=== PATIENT | female | born 1960 | race African-American/Black ===

== ENCOUNTER 2020-07-09 14:58 | Outpatient (CLI) | payer MEDICARE ==
--- NOTE | 2020-07-17 13:42 | MMO ---
Bilateral MAMMO Bilat Screen [facility]. CLINICAL HISTORY: Patient is 59 years old and is seen for screening. The patient has no family history of breast cancer. The patient has no personal history of cancer. VIEWS: The views performed were: bilateral craniocaudal with tomosynthesis and bilateral mediolateral oblique with tomosynthesis. FILMS COMPARED: The present examination has been compared to prior imaging studies performed at [facility] on 03/15/2007, 04/03/2008, 04/22/2009 and 10/12/2014. This study has been interpreted with the assistance of computer-aided detection. MAMMOGRAM FINDINGS: There are scattered fibroglandular densities. Finding 1: There are stable benign appearing calcifications seen in both breasts. Finding 2: There are new calcifications with grouped or clustered distribution seen in the upper-outer region of the right breast. Finding 3: There are new calcifications with grouped or clustered distribution seen in the outer region of the left breast. IMPRESSION: FINDING 1: STABLE BENIGN APPEARING CALCIFICATIONS IN BOTH BREASTS ARE BENIGN. FINDING 2: NEW CALCIFICATIONS IN THE RIGHT BREAST REQUIRE ADDITIONAL EVALUATION. ADDITIONAL PROJECTIONS (RIGHT CRANIOCAUDAL SPOT COMPRESSION MAGNIFICATION; RIGHT MEDIOLATERAL OBLIQUE SPOT COMPRESSION MAGNIFICATION; RIGHT MEDIOLATERAL; AND RIGHT MEDIOLATERAL SPOT COMPRESSION MAGNIFICATION) ARE RECOMMENDED. FINDING 3: NEW CALCIFICATIONS IN THE LEFT BREAST REQUIRE ADDITIONAL EVALUATION. ADDITIONAL PROJECTIONS (LEFT CRANIOCAUDAL SPOT COMPRESSION MAGNIFICATION; LEFT MEDIOLATERAL OBLIQUE SPOT COMPRESSION MAGNIFICATION; LEFT MEDIOLATERAL; AND LEFT MEDIOLATERAL SPOT COMPRESSION MAGNIFICATION) ARE RECOMMENDED. THE RESULTS OF THIS EXAM WERE SENT TO THE PATIENT. ACR BI-RADS Category 0 - Incomplete: Need additional imaging evaluation. [facility] will notify the patient of the need for additional imaging services. MAMMOGRAPHY NOTE: 1. A negative mammogram report should not delay a biopsy if a dominant of clinically suspicious mass is present. 2. Approximately 10% to 15% of breast cancers are not detected by mammography. 3. Adenosis and dense breasts may obscure an underlying neoplasm. Reported by: CAYDEN MOORE MD Electonically Signed: [id number]
== END 2020-07-09 14:59 | disposition home or self-care (01) ==
LOC: BICMAMMO 14:58
PROVIDERS: ATTEND Nurse Practitioner Family
DX: Z12.31 Encounter for screening mammogram for malignant neoplasm of breast (principal); R92.1 Mammographic calcification found on diagnostic imaging of breast
CPT/HCPCS: 77063; 77067

== ENCOUNTER 2020-07-19 10:45 | Outpatient (CLI) | payer MEDICARE, MEDICAID ==
--- NOTE | 2020-07-19 11:36 | MMO ---
Bilateral MAMMO Bilat Diag [facility]. CLINICAL HISTORY: Patient is 60 years old and is seen for additional evaluation requested from prior study. The patient has no family history of breast cancer. The patient has no personal history of cancer. VIEWS: The views performed were: bilateral craniocaudal spot compression magnification; bilateral mediolateral; bilateral mediolateral spot compression magnification; and bilateral mediolateral with tomosynthesis. FILMS COMPARED: The present examination has been compared to prior imaging studies performed at [facility] on 07/09/2020, and at [facility] on 04/03/2008, 04/22/2009 and 10/12/2014. This study has been interpreted with the assistance of computer-aided detection. MAMMOGRAM FINDINGS: There are scattered fibroglandular densities. Finding 1: There are calcifications with grouped or clustered distribution seen in the posterior central region of the left breast. Finding 2: There are calcifications with grouped or clustered distribution seen in the right breast at 11 o'clock. Finding 3: There are calcifications with grouped or clustered distribution seen in the right breast at 6 o'clock. IMPRESSION: FINDING 1: CALCIFICATIONS IN THE LEFT BREAST ARE PROBABLY BENIGN. FOLLOW-UP IN 6 MONTHS IS RECOMMENDED. FINDING 2: CALCIFICATIONS IN THE RIGHT BREAST AT 11 O'CLOCK ARE PROBABLY BENIGN. FOLLOW-UP IN 6 MONTHS IS RECOMMENDED. FINDING 3: CALCIFICATIONS IN THE RIGHT BREAST AT 6 O'CLOCK ARE PROBABLY BENIGN. FOLLOW-UP IN 6 MONTHS IS RECOMMENDED. THE RESULTS OF THIS EXAM WERE SENT TO THE PATIENT. ACR BI-RADS Category 3 - Probably benign finding - short interval follow-up suggested. [facility] will notify the patient of the need for additional imaging services. MAMMOGRAPHY NOTE: 1. A negative mammogram report should not delay a biopsy if a dominant of clinically suspicious mass is present. 2. Approximately 10% to 15% of breast cancers are not detected by mammography. 3. Adenosis and dense breasts may obscure an underlying neoplasm. Reported by: KEYANA NEWTON MD Electonically Signed: [id number]
== END 2020-07-19 10:46 | disposition home or self-care (01) ==
LOC: BICMAMMO 10:45
PROVIDERS: ATTEND Nurse Practitioner Family
DX: R92.1 Mammographic calcification found on diagnostic imaging of breast (principal)
CPT/HCPCS: 77066; G0279

== ENCOUNTER 2021-01-23 08:46 | Outpatient (CLI) | payer MEDICARE, MEDICAID | END 2021-01-23 08:47 | disposition home or self-care (01) | LOC: BICMAMMO 08:46 | PROVIDERS: ATTEND Nurse Practitioner Family | DX: R92.8 Other abnormal and inconclusive findings on diagnostic imaging of breast (principal); R92.1 Mammographic calcification found on diagnostic imaging of breast | CPT/HCPCS: 77066; G0279 ==

== ENCOUNTER 2023-01-31 10:41 | Inpatient (IN) | payer OTHER ==
[2023-01-31] MEDS ORDERED: EPINEPHrine 1 MG/10 ML Abboject SYRINGE ONE (11:07)
[2023-01-31 11:23] LABS: #Basophils 0.1 thou/uL (0.0-0.2); #Eosinphils 0.6 thou/uL (0.0-0.7); #Lymphocytes 4.3 thou/uL (1.20-3.40); #Monocytes 0.6 thou/uL (0.11-0.59); #Neutrophils 4.4 thou/uL (1.40-6.50); %Basophils 0.4 % (0.0-1.0); %Eosinophils 5.8 % (0.0-10.0); %Lymphocytes 42.7 % (21.0-51.0); %Monocytes 6.7 % (0.0-10.0); %Neutrophils 44.4 % (42.0-75.0); Hemoglobin 11.1 g/dL (12.0-16.0); Mean Corpuscular Hemoglobin 24.5 pg (27.0-31.0); Mean Corpuscular Volume 81.6 fl (78.0-98.0); Mean Platelet Volume 7.8 fL (7.4-10.4); Platelet Count 396 10x3/uL (130-400); RBC Distribution Width 17.1 % (11.5-14.5); Red Blood Cell (RBC) Count 4.52 mill/uL (4.20-5.40); White Blood Cell (WBC) Count 9.9 10x3/uL (4.8-10.8)
[2023-01-31 11:33] LABS: Analyzer IN Cardio ER; CO2 Tension 51.6 mmHg (35.0-45.0); Calcium, Ionized (arterial) 1.25 mmol/L (1.12-1.30); Carboxyhemoglobin (COHb) 0.3 gm% (0.0-3.0); Hematocrit-ABG 31 % (36.0-47.0); Hemoglobin (Hb) 10.6 g/dL (12.0-16.0); O2 Tension (PaO2), arterial 144.6 mmHg (> 80.0); Potassium - ABG Lab 4.15 mmol/L (3.70-5.30)
[2023-01-31 11:36] LABS: Puncture Site Right Radial; pH, Arterial 7.052 (7.35-7.45)
[2023-01-31 11:37] LABS: ALT (SGPT) 34 U/L (8-55); AST (SGOT) 36 U/L (5-34); Albumin 3.5 g/dL (3.4-4.8); Alkaline Phosphatase 109 U/L (40-110); Anion Gap 24 mmol/L (10-20); BUN (Urea Nitrogen) 19 mg/dL (9.8-20.1); Bilirubin, Total 0.2 mg/dL (0.2-1.2); Calc. Creatinine Clearance 0 mL/min (70-130); Calcium 10.5 mg/dL (7.8-10.44); Carbon Dioxide 14 mmol/L (23-31); Chloride 107 mmol/L (98-107); Estimated GFR 41; Globulin 3.3 g/dL (2.4-3.5); Protein, Total 6.8 g/dL (5.8-8.1); Sodium 140 mmol/L (136-145)
[2023-01-31 11:38] LABS: CK (CPK) 73 U/L (29-168); Lipase 49 U/L (8-78)
[2023-01-31 11:43] LABS: Bacteria/HPF None Seen HPF (None Seen); Bilirubin Negative (Negative); Blood, Urine 3+ (Negative); Clarity Turbid (Clear); Glucose, Urine (Dipstick) Greater than 1000 mg/dL (Negative); Ketone, Urine Negative (Negative); Leukocyte Negative Leu/uL (Negative); Nitrite Negative (Negative); Protein, Urine (Dipstick) 100 mg/dL (Neg-Trace); RBC/HPF Greater than 50 HPF (0-3); Specific Gravity, Urine 1.012 (1.002-1.036); Squamous Epithelial 0-3 HPF (0-3); Urobilinogen Normal mg/dL (Less than 2); WBC/HPF 0-3 HPF (0-3); pH, Urine 7.5 (5.0-9.0)
[2023-01-31 11:44] LABS: Glucose 526 mg/dL (80-115)
[2023-01-31] MEDS ORDERED: Fentanyl BOLUS 250 ML IVPB PRN (12:00)
[2023-01-31] MEDS ORDERED: Fentanyl CADD 100 ML IV SCH (12:00)
[2023-01-31] MEDS ORDERED: Sodium Bicarb 50 MEQ/50 ML VIAL ONE ×2 (12:14→12:17)
[2023-01-31] MEDS ORDERED: INSULIN REGULAR IN 0.9 % NACL 100 UNITS/100 ML BAG ONE (12:49)
[2023-01-31] MEDS ORDERED: Cefepime 2 GM VIAL ONE (12:49)
[2023-01-31] MEDS ORDERED: Acetaminophen 325 MG TAB PO PRN (13:10)
[2023-01-31] MEDS ORDERED: Ondansetron PF 4 MG/2 ML Vial IVP PRN (13:10)
[2023-01-31] MEDS ORDERED: D5 1/2 NS w/20 mEq KCL 1,000 ML IV PRN (13:15)
[2023-01-31] MEDS ORDERED: Dextrose 50% Abboject 50 ML SYRINGE SLOW IVP PRN ×2 (13:15→20:20)
[2023-01-31] MEDS ORDERED: Sodium Chloride 0.9% 1,000 ML IV PRN ×4 (13:15)
[2023-01-31] MEDS ORDERED: NS 0.9% w/ 20 MEQ KCL 1,000 ML IV PRN ×2 (13:15)
[2023-01-31] MEDS ORDERED: Dextrose 5 %-0.45 % NaCl 1,000 ML IV PRN (13:15)
[2023-01-31] MEDS ORDERED: HUMULIN R 100 UNITS in Sodium Chloride 0.9% 100 ML IVPB SCH (13:15)
[2023-01-31] MEDS ORDERED: Electrolyte Replacement Protocol 1 EACH IVPB ONE (13:15)
[2023-01-31] MEDS ORDERED: VANCOMYCIN IVPB PRN (13:17)
[2023-01-31] MEDS ORDERED: Vancomycin 1 GM/200 ML (FROZEN) BAG ONE (13:27)
[2023-01-31] MEDS ORDERED: Electrolyte Replacement Protocol FS PRN (13:45)
[2023-01-31] MEDS ORDERED: Amiodarone 150 MG, Admixture Fee 1 EACH in Dextrose 5% in Water 100 ML IVPB SCH (13:45)
[2023-01-31 13:52] LABS: SARS-CoV-2 NAA Rapid Test DETECTED (NotDetected)
[2023-01-31] MEDS ORDERED: Propofol 1,000 MG/100 ML VIAL IV ONE (14:19)
[2023-01-31 14:24] LABS: Anion Gap 15 mmol/L (10-20); BUN (Urea Nitrogen) 21 mg/dL (9.8-20.1); Calc. Creatinine Clearance 0 mL/min (70-130); Calcium 8.5 mg/dL (7.8-10.44); Carbon Dioxide 20 mmol/L (23-31); Chloride 108 mmol/L (98-107); Estimated GFR 43; Glucose 488 mg/dL (80-115); Potassium 4.9 mmol/L (3.5-5.1); Sodium 138 mmol/L (136-145)
[2023-01-31 14:25] LABS: Troponin I 0.212 ng/mL (< 0.028)
[2023-01-31] MEDS ORDERED: NOREPINEPHRINE 8 MG/250 ML-D5W 250 ML IVPB SCH (15:00)
[2023-01-31] MEDS ORDERED: Sodium Chloride 0.9% 1,000 ML IV SCH ×2 (15:00→15:30)
[2023-01-31] MEDS ORDERED: Lactated Ringer's 1,000 ML IV SCH (15:00)
[2023-01-31] MEDS ORDERED: Dexamethasone 4 mg/ml Vial SLOW IVP SCH (15:15)
[2023-01-31] MEDS: NS 0.9% w/ 20 MEQ KCL 1,000 ML/1,000 ML BAG IV SCH ×3 (15:39→19:52)
[2023-01-31] MEDS: Amiodarone 450 MG in Dextrose 5% in Water 250 ML IVPB SCH (15:39)
[2023-01-31] MEDS ORDERED: Vancomycin 1 GM in Premix Bag 1 BAG IVPB SCH (15:45)
[2023-01-31] MEDS ORDERED: Iopamidol-370 76% 500 ML MDV (1 ML CHARGE) ONE (15:47)
[2023-01-31] MEDS ORDERED: Insulin Regular 100 units/100 ml in NS IVPB SCH (16:00)
[2023-01-31 17:40] LABS: Anion Gap 12 mmol/L (10-20); BUN (Urea Nitrogen) 22 mg/dL (9.8-20.1); Calc. Creatinine Clearance 98 mL/min (70-130); Calcium 7.8 mg/dL (7.8-10.44); Carbon Dioxide 20 mmol/L (23-31); Chloride 111 mmol/L (98-107); Estimated GFR 50; Glucose 338 mg/dL (80-115); Sodium 139 mmol/L (136-145)
[2023-01-31 17:58] LABS: Troponin I 0.669 ng/mL (< 0.028)
[2023-01-31] MEDS ORDERED: Dextrose 5% in Water 1,000 ML IV PRN (20:20)
[2023-01-31] MEDS ORDERED: Heparin 5,000 UNITS/ML VIAL SC SCH (21:00)
[2023-01-31 21:06] LABS: Magnesium 1.6 mg/dL (1.6-2.6); Phosphorus 3.2 mg/dL (2.3-4.7)
[2023-01-31] MEDS: HumaLOG 300 UNITS/3 ML VIAL SC PRN (21:12)
[2023-01-31] MEDS: Famotidine/PF 20 mg/2ml Vial SLOW IVP SCH (21:14)
[2023-01-31] MEDS: Heparin 5,000 UNITS/ML VIAL SC SCH (21:15)
[2023-01-31] MEDS ORDERED: Magnesium 2 GM/50 ML(in water) 2 GM in Premix Bag 1 BAG IVPB SCH (22:00)
[2023-01-31] MEDS: Sodium Chloride 0.9% 1,000 ML IV SCH (22:30)
[2023-01-31 23:24] LABS: Hemoglobin 9.9 g/dL (12.0-16.0); Mean Corpuscular HGB CONC 31.6 g/dL (32.0-36.0); Mean Corpuscular Hemoglobin 24.9 pg (27.0-31.0); Mean Corpuscular Volume 78.8 fl (78.0-98.0); Mean Platelet Volume 7.5 fL (7.4-10.4); Platelet Count 380 10x3/uL (130-400); RBC Distribution Width 16.7 % (11.5-14.5); Red Blood Cell (RBC) Count 3.99 mill/uL (4.20-5.40); White Blood Cell (WBC) Count 14.1 10x3/uL (4.8-10.8)
[2023-01-31 23:25] LABS: INR-International Normal Ratio 1.3; Prothrombin Time 16.8 sec (12.0-14.7)
[2023-01-31 23:26] LABS: PTT 35.9 sec (22.9-36.1)
[2023-01-31 23:29] LABS: Lactic Acid 1.6 mmol/L (0.5-2.2)
[2023-01-31 23:42] LABS: Anisocytosis SLIGHT = 6-15 cells (100X) (0-5/hpf); Band 10 % (5-11); Burr Cells SLIGHT = 2-5 cells (100X) (0-1/hpf); Lymphocytes 7 % (21-51); MDiff Complete? YES; Monocytes 5 % (0-10); Neutrophil 77 % (42-75); Platelet Morphology Comment Appears Adequate; Polychromasia SLIGHT = 2-3 cells (100X) (0-2/hpf)
[2023-01-31 23:44] LABS: Anion Gap 13 mmol/L (10-20); BUN (Urea Nitrogen) 21 mg/dL (9.8-20.1); Calc. Creatinine Clearance 104 mL/min (70-130); Calcium 8.2 mg/dL (7.8-10.44); Carbon Dioxide 23 mmol/L (23-31); Chloride 108 mmol/L (98-107); Estimated GFR 53; Glucose 313 mg/dL (80-115); Magnesium 2.3 mg/dL (1.6-2.6); Phosphorus 2.4 mg/dL (2.3-4.7); Sodium 140 mmol/L (136-145)
[2023-01-31] MEDS ORDERED: Cefepime 1 GM in Sodium Chloride 0.9% 100 ML IVPB SCH (23:59)
[2023-02-01] MEDS: HumaLOG 300 UNITS/3 ML VIAL SC PRN ×6 (00:32→20:27)
[2023-02-01] MEDS ORDERED: HumaLOG 300 UNITS/3 ML VIAL SC PRN (00:53)
[2023-02-01 04:33] LABS: Mean Corpuscular HGB CONC 31.2 g/dL (32.0-36.0); Mean Corpuscular Hemoglobin 24.4 pg (27.0-31.0); Mean Corpuscular Volume 78.2 fl (78.0-98.0); Mean Platelet Volume 7.5 fL (7.4-10.4); Platelet Count 350 10x3/uL (130-400); RBC Distribution Width 16.8 % (11.5-14.5); White Blood Cell (WBC) Count 13.9 10x3/uL (4.8-10.8)
[2023-02-01 04:52] LABS: Anion Gap 16 mmol/L (10-20); BUN (Urea Nitrogen) 20 mg/dL (9.8-20.1); Calc. Creatinine Clearance 110 mL/min (70-130); Calcium 8.2 mg/dL (7.8-10.44); Carbon Dioxide 18 mmol/L (23-31); Chloride 108 mmol/L (98-107); Estimated GFR 57; Glucose 296 mg/dL (80-115); Magnesium 1.8 mg/dL (1.6-2.6); Phosphorus 1.7 mg/dL (2.3-4.7); Potassium 3.7 mmol/L (3.5-5.1); Sodium 138 mmol/L (136-145)
[2023-02-01] MEDS: Propofol 1,000 MG/100 ML VIAL IV PRN ×2 (05:03→11:37)
[2023-02-01 05:12] LABS: INR-International Normal Ratio 1.3; PTT 33.3 sec (22.9-36.1); Prothrombin Time 16.6 sec (12.0-14.7)
[2023-02-01] MEDS: Sodium Chloride 0.9% 1,000 ML IV SCH ×4 (05:42→19:30)
[2023-02-01 06:05] LABS: Anisocytosis SLIGHT = 6-15 cells (100X) (0-5/hpf); Band 11 % (5-11); Crenated RBC SLIGHT = 1-5 cells (100X) (None Seen); Lymphocytes 4 % (21-51); MDiff Complete? YES; Monocytes 1 % (0-10); Neutrophil 84 % (42-75); Ovalocytes SLIGHT = 2-5 cells (100X) (0-1/hpf); Platelet Clumps SLIGHT; Platelet Morphology Comment Appears Adequate; Vacuoles SLIGHT
[2023-02-01] MEDS ORDERED: Propofol BOLUS 1,000 MG/100 ML VIAL IV PRN (07:00)
[2023-02-01] MEDS ORDERED: Fentanyl CADD 100 ML IV SCH (07:00)
[2023-02-01] MEDS ORDERED: Fentanyl BOLUS 250 ML IVPB PRN (07:00)
[2023-02-01 08:01] LABS: Actual Bicarbonate (HCO3a) 20.3 mEq/L (22-28); Base Excess (BEa) -2.7 mEq/L (-2.0 to +3.0); CO2 Tension 29.2 mmHg (35.0-45.0); Calcium, Ionized (arterial) 1.08 mmol/L (1.12-1.30); Carboxyhemoglobin (COHb) 0.2 gm% (0.0-3.0); Hematocrit-ABG 31 % (36.0-47.0); Hemoglobin (Hb) 10.7 g/dL (12.0-16.0); O2 Tension (PaO2), arterial 75.6 mmHg (> 80.0); Potassium - ABG Lab 3.55 mmol/L (3.70-5.30); pH, Arterial 7.459 (7.35-7.45)
[2023-02-01 08:03] LABS: Puncture Site LRA
[2023-02-01] MEDS: Amiodarone 450 MG in Dextrose 5% in Water 250 ML IVPB SCH ×2 (08:19→22:49)
[2023-02-01] MEDS: Insulin Glargine 30 UNITS/0.3 ML VIAL SC SCH (08:20)
[2023-02-01] MEDS: Famotidine/PF 20 mg/2ml Vial SLOW IVP SCH ×2 (08:20→20:34)
[2023-02-01] MEDS: Dexamethasone 4 mg/ml Vial SLOW IVP SCH (08:20)
[2023-02-01] MEDS: Heparin 5,000 UNITS/ML VIAL SC SCH ×3 (08:21→20:34)
[2023-02-01] MEDS ORDERED: Dexamethasone 6 MG in Sodium Chloride 0.9% 50 ML IVPB SCH (09:00)
[2023-02-01] MEDS: Vecuronium 10 MG VIAL IV PRN ×2 (09:08→14:07)
[2023-02-01] MEDS: Lorazepam 2 MG/ML VIAL SLOW IVP PRN ×2 (09:08→14:07)
[2023-02-01] MEDS ORDERED: Meropenem 1 GM in Sodium Chloride 0.9% 100 ML IVPB SCH (10:00)
[2023-02-01 11:18] LABS: Hemoglobin 9.2 g/dL (12.0-16.0); Mean Corpuscular HGB CONC 30.2 g/dL (32.0-36.0); Mean Corpuscular Hemoglobin 23.8 pg (27.0-31.0); Mean Corpuscular Volume 79.1 fl (78.0-98.0); Platelet Count 321 10x3/uL (130-400); RBC Distribution Width 16.8 % (11.5-14.5); Red Blood Cell (RBC) Count 3.85 mill/uL (4.20-5.40); White Blood Cell (WBC) Count 12.6 10x3/uL (4.8-10.8)
[2023-02-01 11:22] LABS: INR-International Normal Ratio 1.3
[2023-02-01 11:27] LABS: Calcium 7.9 mg/dL (7.8-10.44)
[2023-02-01 11:31] LABS: Anion Gap 12 mmol/L (10-20); BUN (Urea Nitrogen) 20 mg/dL (9.8-20.1); Calc. Creatinine Clearance 123 mL/min (70-130); Calcium 7.8 mg/dL (7.8-10.44); Carbon Dioxide 20 mmol/L (23-31); Chloride 109 mmol/L (98-107); Estimated GFR 61; Glucose 297 mg/dL (80-115); Magnesium 1.8 mg/dL (1.6-2.6); Potassium 3.6 mmol/L (3.5-5.1); Sodium 137 mmol/L (136-145)
[2023-02-01 11:32] LABS: Anisocytosis SLIGHT = 6-15 cells (100X) (0-5/hpf); Band 18 % (5-11); Hypochromia SLIGHT = 6-15 cells (100X) (0-5/hpf); Lymphocytes 3 % (21-51); MDiff Complete? YES; Neutrophil 79 % (42-75); Platelet Morphology Comment Appears Adequate; Polychromasia SLIGHT = 2-3 cells (100X) (0-2/hpf)
[2023-02-01 11:39] LABS: Phosphorus 1.4 mg/dL (2.3-4.7)
[2023-02-01 11:59] LABS: CKMB 9.8 ng/mL (0-6.6)
[2023-02-01] MEDS ORDERED: Sodium Phosphate 30 MMOL in Sodium Chloride 0.9% 250 ML 250 ML IVPB SCH (15:45)
[2023-02-01] MEDS: VANCOMYCIN 2 GRAM/500 ML BAG 2 GM in Premix Bag 1 BAG IVPB SCH (16:45)
[2023-02-01 16:46] LABS: #Basophils 0.1 thou/uL (0.0-0.2); #Lymphocytes 0.5 thou/uL (1.20-3.40); #Monocytes 0.1 thou/uL (0.11-0.59); #Neutrophils 12.5 thou/uL (1.40-6.50); %Basophils 0.4 % (0.0-1.0); %Eosinophils 0.1 % (0.0-10.0); %Lymphocytes 3.5 % (21.0-51.0); %Monocytes 0.9 % (0.0-10.0); %Neutrophils 95.1 % (42.0-75.0); Hemoglobin 9.9 g/dL (12.0-16.0); Mean Corpuscular HGB CONC 31.1 g/dL (32.0-36.0); Mean Corpuscular Hemoglobin 24.3 pg (27.0-31.0); Mean Corpuscular Volume 78.1 fl (78.0-98.0); Mean Platelet Volume 7.6 fL (7.4-10.4); Platelet Count 284 10x3/uL (130-400); RBC Distribution Width 16.8 % (11.5-14.5); Red Blood Cell (RBC) Count 4.05 mill/uL (4.20-5.40); White Blood Cell (WBC) Count 13.2 10x3/uL (4.8-10.8)
[2023-02-01 17:00] LABS: INR-International Normal Ratio 1.3; PTT 42.4 sec (22.9-36.1)
[2023-02-01 17:11] LABS: Anion Gap 15 mmol/L (10-20); BUN (Urea Nitrogen) 19 mg/dL (9.8-20.1); Calc. Creatinine Clearance 127 mL/min (70-130); Calcium 8.1 mg/dL (7.8-10.44); Calcium 8.2 mg/dL (7.8-10.44); Carbon Dioxide 16 mmol/L (23-31); Chloride 109 mmol/L (98-107); Estimated GFR 64; Glucose 291 mg/dL (80-115); Magnesium 1.7 mg/dL (1.6-2.6); Potassium 3.2 mmol/L (3.5-5.1); Sodium 137 mmol/L (136-145)
[2023-02-01] MEDS: Meropenem 1 GM in Sodium Chloride 0.9% 100 ML IVPB SCH (17:49)
[2023-02-01] MEDS: niCARdipine 25 MG in Sodium Chloride 0.9% 250 ML 250 ML IVPB SCH ×3 (17:50→23:25)
[2023-02-01 18:11] LABS: Phosphorus 1.2 mg/dL (2.3-4.7)
[2023-02-01 18:31] LABS: CKMB 9.7 ng/mL (0-6.6)
[2023-02-01] MEDS ORDERED: Electrolyte Replacement Protocol FS PRN (18:45)
[2023-02-01] MEDS ORDERED: Magnesium 2 GM/50 ML(in water) 2 GM in Premix Bag 1 BAG IVPB SCH (18:45)
[2023-02-01] MEDS: Potassium Chloride 20 MEQ in Premix Bag 1 BAG IVPB SCH ×2 (19:00→20:45)
[2023-02-01] MEDS ORDERED: Potassium Phosphate 22 MMOL in Sodium Chloride 0.9% 250 ML 250 ML IVPB SCH (21:00)
[2023-02-01] MEDS ORDERED: Potassium Chloride 10 MEQ in Premix Bag 1 BAG IVPB SCH (21:00)
[2023-02-01 21:26] LABS: Anion Gap 15 mmol/L (10-20); BUN (Urea Nitrogen) 18 mg/dL (9.8-20.1); Calc. Creatinine Clearance 124 mL/min (70-130); Calcium 8.2 mg/dL (7.8-10.44); Carbon Dioxide 17 mmol/L (23-31); Chloride 109 mmol/L (98-107); Estimated GFR 62; Glucose 248 mg/dL (80-115); Potassium 3.1 mmol/L (3.5-5.1); Sodium 138 mmol/L (136-145)
[2023-02-02] MEDS: HumaLOG 300 UNITS/3 ML VIAL SC PRN ×5 (00:25→20:32)
[2023-02-02] MEDS: Meropenem 1 GM in Sodium Chloride 0.9% 100 ML IVPB SCH ×3 (01:28→17:01)
[2023-02-02] MEDS: niCARdipine 25 MG in Sodium Chloride 0.9% 250 ML 250 ML IVPB SCH (01:28)
[2023-02-02 01:58] LABS: Anion Gap 15 mmol/L (10-20); BUN (Urea Nitrogen) 19 mg/dL (9.8-20.1); Calc. Creatinine Clearance 121 mL/min (70-130); Calcium 7.9 mg/dL (7.8-10.44); Carbon Dioxide 18 mmol/L (23-31); Chloride 109 mmol/L (98-107); Estimated GFR 60; Glucose 209 mg/dL (80-115); Potassium 4.1 mmol/L (3.5-5.1); Sodium 138 mmol/L (136-145)
[2023-02-02] MEDS: niCARdipine 50 MG in Sodium Chloride 0.9% 250 ML 230 ML IV SCH ×4 (03:20→21:35)
[2023-02-02] MEDS: Sodium Chloride 0.9% 1,000 ML IV SCH ×3 (04:30→22:00)
[2023-02-02 05:30] LABS: Magnesium 2.1 mg/dL (1.6-2.6); Phosphorus 3.4 mg/dL (2.3-4.7); Potassium 3.3 mmol/L (3.5-5.1)
[2023-02-02] MEDS ORDERED: Potassium Chloride 20 MEQ TAB PO SCH (08:00)
[2023-02-02] MEDS: Potassium Chloride 20 MEQ in Premix Bag 1 BAG IVPB SCH ×2 (08:35→11:08)
[2023-02-02] MEDS: Dexamethasone 4 mg/ml Vial SLOW IVP SCH (09:25)
[2023-02-02] MEDS: Heparin 5,000 UNITS/ML VIAL SC SCH ×3 (09:26→20:18)
[2023-02-02] MEDS: Famotidine/PF 20 mg/2ml Vial SLOW IVP SCH ×2 (09:26→20:18)
[2023-02-02] MEDS: Insulin Glargine 30 UNITS/0.3 ML VIAL SC SCH (09:26)
[2023-02-02 16:26] LABS: Vancomycin, Trough 14.8 ug/mL
[2023-02-02] MEDS: VANCOMYCIN 2 GRAM/500 ML BAG 2 GM in Premix Bag 1 BAG IVPB SCH (17:00)
[2023-02-02] MEDS ORDERED: hydrALAZINE 20 MG/ML VIAL SLOW IVP PRN (21:23)
[2023-02-03] MEDS: HumaLOG 300 UNITS/3 ML VIAL SC PRN ×6 (00:27→20:28)
[2023-02-03] MEDS: Meropenem 1 GM in Sodium Chloride 0.9% 100 ML IVPB SCH ×3 (01:17→17:28)
[2023-02-03] MEDS: Labetalol HCl 100 MG/20 ML VIAL SLOW IVP PRN ×4 (01:18→21:15)
[2023-02-03] MEDS: niCARdipine 50 MG in Sodium Chloride 0.9% 250 ML 230 ML IV SCH ×4 (02:03→15:33)
[2023-02-03] MEDS: Amiodarone 450 MG in Dextrose 5% in Water 250 ML IVPB SCH ×2 (04:09→20:17)
[2023-02-03] MEDS: Sodium Chloride 0.9% 1,000 ML IV SCH ×4 (05:27→17:30)
[2023-02-03 07:53] LABS: #Lymphocytes 0.5 thou/uL (1.20-3.40); #Monocytes 0.4 thou/uL (0.11-0.59); #Neutrophils 16.9 thou/uL (1.40-6.50); %Lymphocytes 2.7 % (21.0-51.0); %Monocytes 2.2 % (0.0-10.0); %Neutrophils 95.1 % (42.0-75.0); Hemoglobin 9.5 g/dL (12.0-16.0); Mean Corpuscular HGB CONC 33.1 g/dL (32.0-36.0); Mean Corpuscular Hemoglobin 25.3 pg (27.0-31.0); Mean Corpuscular Volume 76.4 fl (78.0-98.0); Mean Platelet Volume 7.4 fL (7.4-10.4); Platelet Count 360 10x3/uL (130-400); Red Blood Cell (RBC) Count 3.77 mill/uL (4.20-5.40); White Blood Cell (WBC) Count 17.8 10x3/uL (4.8-10.8)
[2023-02-03 08:17] LABS: ALT (SGPT) 25 U/L (8-55); AST (SGOT) 77 U/L (5-34); Albumin 2.9 g/dL (3.4-4.8); Alkaline Phosphatase 94 U/L (40-110); Anion Gap 13 mmol/L (10-20); BUN (Urea Nitrogen) 25 mg/dL (9.8-20.1); Bilirubin, Total 0.3 mg/dL (0.2-1.2); Calc. Creatinine Clearance 107 mL/min (70-130); Calcium 7.6 mg/dL (7.8-10.44); Carbon Dioxide 18 mmol/L (23-31); Chloride 113 mmol/L (98-107); Estimated GFR 53; Globulin 3.4 g/dL (2.4-3.5); Glucose 364 mg/dL (80-115); Magnesium 2.1 mg/dL (1.6-2.6); Phosphorus 2.2 mg/dL (2.3-4.7); Potassium 3.7 mmol/L (3.5-5.1); Protein, Total 6.3 g/dL (5.8-8.1); Sodium 140 mmol/L (136-145)
[2023-02-03] MEDS: Dexamethasone 4 mg/ml Vial SLOW IVP SCH (08:33)
[2023-02-03] MEDS: Heparin 5,000 UNITS/ML VIAL SC SCH ×3 (08:33→20:14)
[2023-02-03] MEDS: Famotidine 20 MG TAB PER TUBE SCH ×2 (08:33→20:14)
[2023-02-03] MEDS ORDERED: Insulin Glargine 30 UNITS/0.3 ML VIAL SC SCH ×2 (09:00→21:00)
[2023-02-03 10:29] LABS: Hypochromia SLIGHT = 6-15 cells (100X) (0-5/hpf); MDiff Complete? YES; Microcytosis SLIGHT = 6-15 cells (100X) (0-5/hpf); Platelet Morphology Comment Appears Adequate; Polychromasia SLIGHT = 2-3 cells (100X) (0-2/hpf)
[2023-02-03] MEDS ORDERED: Scopolamine 1.5 mg/72 hour Patch TD SCH (12:00)
[2023-02-03] MEDS ORDERED: Amlodipine 5 MG TAB PO SCH (12:15)
[2023-02-03] MEDS: VANCOMYCIN 2 GRAM/500 ML BAG 2 GM in Premix Bag 1 BAG IVPB SCH (16:00)
[2023-02-03] MEDS ORDERED: Dextrose 5% in Water 1,000 ML IV PRN (16:29)
[2023-02-03] MEDS ORDERED: Dextrose 50% Abboject 50 ML SYRINGE SLOW IVP PRN (16:29)
[2023-02-04] MEDS: HumaLOG 300 UNITS/3 ML VIAL SC PRN ×6 (00:12→22:13)
[2023-02-04] MEDS: Sodium Chloride 0.9% 1,000 ML IV SCH ×5 (01:06→22:13)
[2023-02-04] MEDS: niCARdipine 50 MG in Sodium Chloride 0.9% 250 ML 230 ML IV SCH ×3 (02:27→12:56)
[2023-02-04] MEDS: Labetalol HCl 100 MG/20 ML VIAL SLOW IVP PRN ×2 (02:27→06:38)
[2023-02-04] MEDS: Meropenem 1 GM in Sodium Chloride 0.9% 100 ML IVPB SCH ×2 (02:27→09:08)
[2023-02-04 04:47] LABS: Mean Corpuscular HGB CONC 31.7 g/dL (32.0-36.0); Mean Corpuscular Hemoglobin 24.6 pg (27.0-31.0); Mean Corpuscular Volume 77.7 fl (78.0-98.0); Platelet Count 433 10x3/uL (130-400); RBC Distribution Width 17.5 % (11.5-14.5); Red Blood Cell (RBC) Count 4.05 mill/uL (4.20-5.40); White Blood Cell (WBC) Count 17.6 10x3/uL (4.8-10.8)
[2023-02-04 04:48] LABS: ALT (SGPT) 17 U/L (8-55); AST (SGOT) 79 U/L (5-34); Alkaline Phosphatase 102 U/L (40-110); Anion Gap 11 mmol/L (10-20); BUN (Urea Nitrogen) 29 mg/dL (9.8-20.1); Bilirubin, Direct 0.2 mg/dL (0.1-0.3); Bilirubin, Total 0.3 mg/dL (0.2-1.2); Calc. Creatinine Clearance 132 mL/min (70-130); Calcium 7.9 mg/dL (7.8-10.44); Carbon Dioxide 20 mmol/L (23-31); Chloride 114 mmol/L (98-107); Estimated GFR 64; Glucose 321 mg/dL (80-115); Magnesium 2.1 mg/dL (1.6-2.6); Potassium 3.6 mmol/L (3.5-5.1); Protein, Total 6.6 g/dL (5.8-8.1); Sodium 141 mmol/L (136-145)
[2023-02-04 05:01] LABS: Band 4 % (5-11); Lymphocytes 2 % (21-51); MDiff Complete? YES; Monocytes 3 % (0-10); Neutrophil 91 % (42-75)
[2023-02-04] MEDS: Heparin 5,000 UNITS/ML VIAL SC SCH ×3 (08:30→21:48)
[2023-02-04] MEDS: Insulin Glargine 30 UNITS/0.3 ML VIAL SC SCH ×2 (08:39→21:48)
[2023-02-04] MEDS: Dexamethasone 4 mg/ml Vial SLOW IVP SCH (08:39)
[2023-02-04] MEDS: Famotidine 20 MG TAB PER TUBE SCH ×2 (08:41→21:49)
[2023-02-04] MEDS: Amlodipine 5 MG TAB PO SCH (08:41)
[2023-02-04] MEDS: Amiodarone 450 MG in Dextrose 5% in Water 250 ML IVPB SCH (09:11)
[2023-02-04] MEDS ORDERED: cefTRIAXone\\ROCEPHIN 2 GM in Sodium Chloride 0.9% 100 ML IVPB SCH (10:00)
[2023-02-04] MEDS ORDERED: cefTRIAXone\\ROCEPHIN 1 GM in Sodium Chloride 0.9% 100 ML IVPB SCH (11:45)
[2023-02-04] MEDS: Morphine 2 MG/ML VIAL SLOW IVP PRN (17:33)
[2023-02-04] MEDS: Vecuronium 10 MG VIAL IV PRN (17:33)
[2023-02-04] MEDS: Lorazepam 2 MG/ML VIAL SLOW IVP PRN (17:33)
[2023-02-05] MEDS: Amiodarone 450 MG in Dextrose 5% in Water 250 ML IVPB SCH ×2 (00:52→13:16)
[2023-02-05] MEDS: HumaLOG 300 UNITS/3 ML VIAL SC PRN ×5 (01:38→21:31)
[2023-02-05] MEDS: Labetalol HCl 100 MG/20 ML VIAL SLOW IVP PRN (03:42)
[2023-02-05] MEDS: Sodium Chloride 0.9% 1,000 ML IV SCH ×3 (03:44→16:36)
[2023-02-05 04:59] LABS: Hemoglobin 10.2 g/dL (12.0-16.0); Hypochromia SLIGHT = 6-15 cells (100X) (0-5/hpf); Lymphocytes 25 % (21-51); MDiff Complete? YES; Mean Corpuscular HGB CONC 32.7 g/dL (32.0-36.0); Mean Corpuscular Hemoglobin 25.4 pg (27.0-31.0); Mean Corpuscular Volume 77.6 fl (78.0-98.0); Neutrophil 75 % (42-75); Platelet Count 408 10x3/uL (130-400); Platelet Morphology Comment Appears Adequate; RBC Distribution Width 17.5 % (11.5-14.5); Red Blood Cell (RBC) Count 4.01 mill/uL (4.20-5.40); White Blood Cell (WBC) Count 11.7 10x3/uL (4.8-10.8)
[2023-02-05 05:22] LABS: Anion Gap 13 mmol/L (10-20); BUN (Urea Nitrogen) 28 mg/dL (9.8-20.1); Calc. Creatinine Clearance 151 mL/min (70-130); Calcium 7.6 mg/dL (7.8-10.44); Carbon Dioxide 17 mmol/L (23-31); Chloride 115 mmol/L (98-107); Estimated GFR 69; Glucose 244 mg/dL (80-115); Magnesium 1.9 mg/dL (1.6-2.6); Potassium 3.6 mmol/L (3.5-5.1); Sodium 141 mmol/L (136-145)
[2023-02-05] MEDS ORDERED: Magnesium 2 GM/50 ML(in water) 2 GM in Premix Bag 1 BAG IVPB SCH (05:30)
[2023-02-05 08:17] LABS: ALT (SGPT) 16 U/L (8-55); AST (SGOT) 75 U/L (5-34); Albumin 2.6 g/dL (3.4-4.8); Alkaline Phosphatase 101 U/L (40-110); Bilirubin, Direct 0.1 mg/dL (0.1-0.3); Bilirubin, Total 0.3 mg/dL (0.2-1.2); Protein, Total 5.9 g/dL (5.8-8.1)
[2023-02-05] MEDS: Amlodipine 5 MG TAB PO SCH (09:23)
[2023-02-05] MEDS: Famotidine 20 MG TAB PER TUBE SCH ×2 (09:23→21:27)
[2023-02-05] MEDS: Heparin 5,000 UNITS/ML VIAL SC SCH ×3 (09:24→21:26)
[2023-02-05] MEDS: Propofol 1,000 MG/100 ML VIAL IV PRN ×3 (09:24→18:24)
[2023-02-05] MEDS: Dexamethasone 4 mg/ml Vial SLOW IVP SCH (09:24)
[2023-02-05] MEDS: Insulin Glargine 30 UNITS/0.3 ML VIAL SC SCH ×2 (09:25→21:27)
[2023-02-05 09:26] VITALS: BP 161/79
[2023-02-05] MEDS ORDERED: cefTRIAXone\\ROCEPHIN 1 GM in Sodium Chloride 0.9% 100 ML IVPB SCH (10:00)
[2023-02-05 13:48] VITALS: BMI 57.5
[2023-02-06] MEDS: Sodium Chloride 0.9% 1,000 ML IV SCH ×2 (00:36→05:15)
[2023-02-06] MEDS: Propofol 1,000 MG/100 ML VIAL IV PRN ×2 (00:37→09:29)
[2023-02-06] MEDS: HumaLOG 300 UNITS/3 ML VIAL SC PRN ×2 (00:37→04:33)
[2023-02-06 04:37] LABS: #Lymphocytes 1.5 thou/uL (1.20-3.40); #Monocytes 0.4 thou/uL (0.11-0.59); #Neutrophils 6.9 thou/uL (1.40-6.50); %Basophils 0.1 % (0.0-1.0); %Eosinophils 0.1 % (0.0-10.0); %Lymphocytes 16.6 % (21.0-51.0); %Monocytes 4.2 % (0.0-10.0); %Neutrophils 79.1 % (42.0-75.0); Hemoglobin 10.2 g/dL (12.0-16.0); Mean Corpuscular Hemoglobin 25.5 pg (27.0-31.0); Mean Corpuscular Volume 77.3 fl (78.0-98.0); Mean Platelet Volume 8.2 fL (7.4-10.4); Platelet Count 398 10x3/uL (130-400); RBC Distribution Width 17.4 % (11.5-14.5); Red Blood Cell (RBC) Count 3.99 mill/uL (4.20-5.40); White Blood Cell (WBC) Count 8.7 10x3/uL (4.8-10.8)
[2023-02-06 04:56] LABS: Anion Gap 12 mmol/L (10-20); BUN (Urea Nitrogen) 29 mg/dL (9.8-20.1); Calc. Creatinine Clearance 169 mL/min (70-130); Calcium 7.6 mg/dL (7.8-10.44); Carbon Dioxide 18 mmol/L (23-31); Chloride 112 mmol/L (98-107); Estimated GFR 80; Glucose 240 mg/dL (80-115); Magnesium 1.9 mg/dL (1.6-2.6); Potassium 3.5 mmol/L (3.5-5.1); Sodium 138 mmol/L (136-145)
[2023-02-06] MEDS: Amiodarone 450 MG in Dextrose 5% in Water 250 ML IVPB SCH (05:15)
[2023-02-06] MEDS ORDERED: Magnesium 2 GM/50 ML(in water) 2 GM in Premix Bag 1 BAG IVPB SCH (05:30)
[2023-02-06 07:18] VITALS: TEMP 98
[2023-02-06 08:00] LABS: ALT (SGPT) 15 U/L (8-55); AST (SGOT) 68 U/L (5-34); Albumin 2.4 g/dL (3.4-4.8); Alkaline Phosphatase 88 U/L (40-110); Bilirubin, Direct 0.1 mg/dL (0.1-0.3); Bilirubin, Total 0.2 mg/dL (0.2-1.2); Protein, Total 5.5 g/dL (5.8-8.1)
[2023-02-06] MEDS: Insulin Glargine 30 UNITS/0.3 ML VIAL SC SCH (09:24)
[2023-02-06] MEDS: Famotidine 20 MG TAB PER TUBE SCH (09:25)
[2023-02-06] MEDS: Dexamethasone 4 mg/ml Vial SLOW IVP SCH (09:25)
[2023-02-06] MEDS: Amlodipine 5 MG TAB PO SCH (09:25)
[2023-02-06] MEDS: Heparin 5,000 UNITS/ML VIAL SC SCH (09:25)
[2023-02-06] MEDS: Morphine 2 MG/ML VIAL SLOW IVP PRN (09:26)
[2023-02-06] MEDS: Lorazepam 2 MG/ML VIAL SLOW IVP PRN (09:26)
== END 2023-02-06 09:44 | disposition hospice, inpatient (51) | DRG 870 ==
LOC: ERS 10:41 → CCU 12:55
PROVIDERS: ADMIT Internal Medicine; ATTEND Family Medicine
PROC: 06HY33Z Insertion of Infusion Device into Lower Vein, Percutaneous Approach (ICD-10-PCS; principal; 2023-01-31)
PROC: 0DH67UZ Insertion of Feeding Device into Stomach, Via Natural or Artificial Opening (ICD-10-PCS; 2023-01-31)
PROC: 6A4Z0ZZ Hypothermia, Single (ICD-10-PCS; 2023-01-31)
PROC: 4A133R1 Monitoring of Arterial Saturation, Peripheral, Percutaneous Approach (ICD-10-PCS; 2023-01-31)
PROC: 5A1955Z Respiratory Ventilation, Greater than 96 Consecutive Hours (ICD-10-PCS; 2023-01-31)
PROC: 3E043XZ Introduction of Vasopressor into Central Vein, Percutaneous Approach (ICD-10-PCS; 2023-01-31)
PROC: 3E0433Z Introduction of Anti-inflammatory into Central Vein, Percutaneous Approach (ICD-10-PCS; 2023-01-31)
PROC: 3E04329 Introduction of Other Anti-infective into Central Vein, Percutaneous Approach (ICD-10-PCS; 2023-01-31)
PROC: 8E0ZXY6 Isolation (ICD-10-PCS; 2023-01-31)
DX: A41.9 Sepsis, unspecified organism (principal); U07.1 COVID-19; I46.9 Cardiac arrest, cause unspecified; E11.00 Type 2 diabetes mellitus with hyperosmolarity without nonketotic hyperglycemic-hyperosmolar coma (NKHHC); J69.0 Pneumonitis due to inhalation of food and vomit; J12.82 Pneumonia due to coronavirus disease 2019; R65.21 Severe sepsis with septic shock; J96.01 Acute respiratory failure with hypoxia; E11.10 Type 2 diabetes mellitus with ketoacidosis without coma; G93.41 Metabolic encephalopathy; I49.01 Ventricular fibrillation; S06.9XAA Unspecified intracranial injury with loss of consciousness status unknown, initial encounter; N17.9 Acute kidney failure, unspecified; G93.1 Anoxic brain damage, not elsewhere classified; Z51.5 Encounter for palliative care; Z66 Do not resuscitate; I47.9 Paroxysmal tachycardia, unspecified; N18.30 Chronic kidney disease, stage 3 unspecified; I12.9 Hypertensive chronic kidney disease with stage 1 through stage 4 chronic kidney disease, or unspecified chronic kidney disease; D63.1 Anemia in chronic kidney disease; E66.01 Morbid (severe) obesity due to excess calories; E11.22 Type 2 diabetes mellitus with diabetic chronic kidney disease; E88.09 Other disorders of plasma-protein metabolism, not elsewhere classified; D72.829 Elevated white blood cell count, unspecified; Z86.73 Personal history of transient ischemic attack (TIA), and cerebral infarction without residual deficits; Z78.1 Physical restraint status; I16.0 Hypertensive urgency
CPT/HCPCS: 31500; 36415; 36416; 36556; 36600; 51702; 70450; 71045; 71275; 74018; 80048; 80053; 80076; 80202; 81003; 81015; 82010; 82550; 82553; 82728; 82805; 83605; 83690; 83735; 83880; 83930; 84100; 84132; 84145; 84484; 85025; 85379; 85610; 85652; 85730; 86140; 87040; 87086; 93005; 94003; 95816; 95819; 95957; 96365; 96366; 96367; 96368; 96374; 96375; 99292; J0171; J0282; J0692; J0696; J1100; J1644; J1815; J1956; J2060; J2185; J2250; J2272; J2704; J3010; J3370; J3370-JW; J3475; J3480; J3490; J7050; J7070; Q9967; S0028